=== PATIENT | male | born 1955 | race Caucasian/White ===

== ENCOUNTER 2023-10-18 15:03 | Outpatient (AMB) | payer BC, SELFPAY ==
--- NOTE | 2023-10-18 15:03 | MHC.OFFVIS ---
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 Patient would like to focus on his right knee today as this has been limiting most of his daily activities, functioning, climbing stairs, squatting and also affecting his sleep. He reports cortisone injection in right knee at [facility] a month ago with partial and temporary relief. He was offered a right knee TKA surgery however he would like to put that off for now as he wants to continue to work. He works at [employer] which involves long walking hours and at times heavy lifting. He reports at times his right knee will lock and cause him imbalance. Denies catching, tingling, numbness Presents with localized tenderness in the anterior and lateral aspects of right knee. Conservative treatments, including PT, Tylenol, topical creams have been minimally effective for his pain reduction or function improvement. Patient is interested to undergo interventional treatments for his right knee. He has upcoming diabetic evaluation by Endocrinology on 11/09/23. He is trying to eat better, decrease carbs intake and limit his light beer/soda consumption. Location Right shoulder and right knee Duration Chronic pain for > 2 years Characteristics of symptom or complaint Right knee- locking, burning, aching, throbbing. Right shoulder- aching Aggravating or associated factors Walking, climbing stairs, heavy lifting, squatting, cold weather Relieving factors Tylenol, OTC topical treatments, ice pack Treatment PT, right knee cortisone injections at [facility]-1 month ago [facility] Medical History Colonic polyp Diabetes mellitus Hypertension Prostatic hypertrophy PAF (paroxysmal atrial fibrillation) Hyperlipidemia Surgical History H/O lumbosacral spine surgery History of shoulder surgery History of left knee replacement Social History Alcohol intake: current Alcohol intake frequency: 3 or more drinks per day Alcohol type: beer Patient Tobacco Use Status: Current everyday Tobacco user Tobacco use type: Cigar Substance Use Type: Caffiene Substance Use Frequency: Daily Review of Systems Const All systems reviewed & are unremarkable except as noted in HPI and below Reports as per HPI, Denies body aches, Denies chills, Reports difficulty sleeping, Denies fatigue, Denies fever(s), Denies headache(s), Denies lethargy, Denies malaise, Denies night sweats, Denies weakness and Denies weight loss ENT Denies headache(s) and Denies neck pain Musc Reports as per HPI, Denies back pain, Reports arthralgias, Reports limited range of motion, Denies muscle weakness, Denies neck pain, Denies numbness, Denies radiating pain into limb, Reports stiffness and Denies tingling Neuro Reports burning sensations, Denies headache(s), Denies lack of coordination, Denies numbness, Denies radicular pain, Denies Sensory deficit (Neuro), Denies tingling, Denies paresthesias and Denies weakness Endo Denies fatigue Physical Exam Vital Signs: Last Vital Signs Pulse 98 10/18/23 15:13 BP 128/74 10/18/23 15:13 Pulse Ox 99 10/18/23 15:13 Oxygen Delivery Method Room Air 10/18/23 15:13 BMI result Body Mass Index 31.5 General: Appears afebrile. Alert and oriented. Mood and affect appropriate. Follows and participates in conversation appropriately. Respiratory effort is unlabored. No cough. Able to transition from sit to stand unassisted. Ambulates with bilaterally normal heel strike and toe off. Neuro Sensory Exam: No Sensory deficit (Neuro) Extrem General: Yes capillary refill normal, Yes no clubbing, cyanosis or edema and Yes no calf tenderness Right lower extremity: knee (limited ROM due to pain) Details: normal to inspection, tenderness and crepitus; no swelling, no ecchymosis, no deformity and no unusual warmth Assessment & Plan Assessment & Plan (1) Right knee pain: Code(s): M25.561 - Pain in right knee (2) Osteoarthritis of right knee: Code(s): M17.11 - Unilateral primary osteoarthritis, right knee Plan Schedule Right Diagnostic Saphenous nerve block at the adductor canal with local and US guidance for potential Sprint PNS trial. We also discussed genicular injections for RFA procedure as back up option. Informational pamphlets were provided ot patient. Expectations, risks and benefits were reviewed. Patient is aware he will be contacted to schedule this procedure. All questions were answered and the patient is in agreement of plan. Follow-up after injections and sooner as needed. Coding Level of Care Code New Pt Level 4 (82436) Diagnoses Right knee pain M25.561 Osteoarthritis of right knee M17.11
[2023-10-18 15:13] VITALS: BP 128/74; PULSE 98; O2SAT 99; BMI 31.5
== END 2023-10-18 15:46 | disposition home or self-care (01) ==
PROVIDERS: PCP Internal Medicine; Visit Provider Nurse Practitioner Family
DX: M25.561 Pain in right knee (principal); M17.11 Unilateral primary osteoarthritis, right knee
CPT/HCPCS: 99204

== ENCOUNTER → 2023-10-18 15:03 | Outpatient (BNVA) | payer BC, SELFPAY | PROVIDERS: PCP Internal Medicine; Visit Provider Nurse Practitioner Family ==

== ENCOUNTER 2023-10-26 10:27 | Outpatient (AMB) | payer BC, SELFPAY ==
--- NOTE | 2023-10-26 10:28 | MHC.OFFVIS ---
Intake Vital Signs 10/26/23 10:30 Height 6 ft Weight 232 lb BMI 31.5 Blood Pressure Location Lt brachial Position Sitting Respiration 12 Pulse 94 Pulse Source Pulse Oximeter Pulse Oximetry (%) 94 Oxygen Delivery Method Room Air Intake Visit Reasons: Right Dx SNB Allergies No Known Allergies Allergy (Verified 10/26/23 10:31) Medication List - Last Reconciled 10/26/23 by Yelena Hayes LPN empagliflozin (Jardiance) 25 mg PO DAILY fluticasone propion-salmeterol 115-21 mcg/actuation (Advair HFA) 2 puffs inhalation BID lisinopril-hydrochlorothiazide 20-25 mg 1 tab PO DAILY metformin 500 mg PO BID rosuvastatin 10 mg PO BEDTIME sildenafil mg PO HPI Right Dx SNB HPI Details 68-year-old male who presents today to the office for a right diagnostic SNB. Denies any recent cough, cold, infection, fever or other significant changes in medical history since last office visit. The patient previously had left shoulder repair and left knee TKA at [facility], back surgery in 1989 and 1993, significant right knee OA, diabetes (A1C 8.4). He states that his knee has been limiting most of his daily activities, functioning, climbing stairs, squatting and also affecting his sleep. He reports cortisone injection in right knee at [facility] a month ago with partial and temporary relief. He works at [employer]. He reports at times his right knee will lock and cause him imbalance. [facility] Medical History Colonic polyp Diabetes mellitus Hypertension Prostatic hypertrophy PAF (paroxysmal atrial fibrillation) Hyperlipidemia Surgical History H/O lumbosacral spine surgery History of shoulder surgery History of left knee replacement Social History Alcohol intake: current Alcohol intake frequency: 3 or more drinks per day Alcohol type: beer Patient Tobacco Use Status: Current everyday Tobacco user Tobacco use type: Cigar Substance Use Type: Caffiene Review of Systems Const All systems reviewed & are unremarkable except as noted in HPI and below Physical Exam Vital Signs: Last Vital Signs Pulse 94 10/26/23 10:30 Resp 12 10/26/23 10:30 Pulse Ox 94 10/26/23 10:30 Oxygen Delivery Method Room Air 10/26/23 10:30 BMI result Body Mass Index 31.5 General: Appears afebrile. Alert and oriented. Mood and affect appropriate. Follows and participates in conversation appropriately. Respiratory effort is unlabored. Able to transition from sit to stand unassisted. Ambulates with bilaterally normal heel strike and toe off. Office Procedures Nerve Block Details: Right diagnostic saphenous nerve block, ultrasound guided After obtaining written consent, pre-procedure blood pressure and heart rate were stable and recorded in the nursing record. The patient was placed supine on the table. The medial thigh area overlying the adductor canal was widely prepped with chloraprep, allowed to dry and sterilely draped. Using ultrasound, the appropriate landmarks including the femoral artery and saphenous nerve were identified. The skin overlying the target was anesthetized with 1% lidocaine. A 21 gauge 100 mm echostim needle was advanced under sonographic guidance to the adductor canal. Aspiration was negative for heme and synovial fluid. 10 cc of lidocaine 1% was injected around the saphenous nerve. The needles were removed, skin cleansed and a sterile bandage was applied. The patient tolerated the procedure well and no complications were encountered. Following the procedure the patient's vital signs and knee strength were stable. The patient was discharged home in good condition with post-procedural instructions. Time Out: Immediately prior to the procedure, the following was verbally confirmed that there is a signed consent form and that the correct patient, planned procedure, site and side are consistent with documentation and that necessary equipment and/or blood products are available prior to the start of the case. Complications: none EBL: <1 cc Note: An ultrasound image of the injection was taken and stored in the permanent record. 59330 - Saphenous (Right side, Ultrasound guided) Procedure code (CPT) selection complete Results Reviewed Results Reviewed: No imaging is available for review. Assessment & Plan Assessment & Plan (1) Osteoarthritis of right knee: Code(s): M17.11 - Unilateral primary osteoarthritis, right knee Plan Discussed temporary nerve stimulator vs. Synvisc injections as a possible treatment option. We did a diagnostic saphenous nerve block today in anticipation of potential saphenous nerve stimulation therapy but patient would like to hold off on nerve stimulation therapy at this time. He is more interested in trial of hyaluronic acid injections, so we will plan for a round of three intraarticular Synvisc injections in the office under ultrasound guidance one week apart. Discussed the risks and benefits of the procedure with the patient in detail. All questions were answered. The patient is on board with the plan. Justification for interventional therapy: ? Patient with average pain > 6/10 . He has previously exhausted physical therapy, bracing, intraarticular cortico-steroid injections. Scribed for Dr. Hussein by Serge Cristina, medical records custodian, on 10/26/2023. I, Dr. Hussein, have personally reviewed and agree with the information entered by the scribe. Coding Level of Care Code Est Pt Level 3 (33964) Diagnoses Osteoarthritis of right knee M17.11 CPT Codes Nerve Block - Nerve Block 10: 29804 - Saphenous ([id number])
[2023-10-26 10:30] VITALS: PULSE 94; RESP 12; O2SAT 94; BMI 31.5
== END 2023-10-26 10:57 | disposition home or self-care (01) ==
PROVIDERS: PCP Internal Medicine; Visit Provider Internal Medicine
DX: M17.11 Unilateral primary osteoarthritis, right knee (principal)
CPT/HCPCS: 64450; 76942

== ENCOUNTER → 2023-10-26 10:27 | Outpatient (BNVA) | payer BC, SELFPAY | PROVIDERS: PCP Internal Medicine; Visit Provider Internal Medicine | DX: M17.11 Unilateral primary osteoarthritis, right knee (principal) | CPT/HCPCS: 64450 ==

== ENCOUNTER 2023-11-06 14:20 | Outpatient (AMB) | payer BC, SELFPAY ==
--- NOTE | 2023-11-06 14:22 | A.OFFVIS_ITS ---
Intake Vital Signs 11/06/23 14:24 Height 6 ft Weight 232 lb BMI 31.5 BP 124/77 Blood Pressure Location Lt brachial Position Sitting Respiration 12 Pulse 104 H Pulse Source Pulse Oximeter Pulse Oximetry (%) 97 Oxygen Delivery Method Room Air Intake Visit Reasons: s/p Right Dx SNB/confirmed Allergies No Known Allergies Allergy (Verified 11/06/23 14:25) Medication List - Last Reconciled 11/06/23 by Yelena Hayes LPN empagliflozin (Jardiance) 25 mg PO DAILY fluticasone propion-salmeterol 115-21 mcg/actuation (Advair HFA) 2 puffs inhalation BID lisinopril-hydrochlorothiazide 20-25 mg 1 tab PO DAILY metformin 500 mg PO BID rosuvastatin 10 mg PO BEDTIME sildenafil mg PO HPI HPI Comments History of Present Illness Details Patient presents today to assess response to Right Diagnostic SNB on 10/26/[address] Hussein. Patient reports 100% pain relief for 4 days and ongoing 75% pain relief since procedures with significant improvement in his mobility, especially with climbing or descending stairs, range of motion, better functioning and improved sleep. Patient reports he would like to hold off on nerve stimulation therapy at this time and trial hyaluronic acid injections first. There is pending prior authorization for there intra-articular Synvisc injections with ultrasound guidance. Current right knee pain is rated at 2-3/10. 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 He rates his back pain at 7- 8/10. He has tried heat therapy, rolling ice packs and adjusting his positions with minimal effect. Patient denies trying Tylenol or NSAIDs for back pain. Denies any pain radiation into his legs, denies numbness, tingling, weakness, foot drop, bladder or bowel dysfunction or saddle anesthesia. Past Procedures: 10/26/23: Right Diagnostic SNB-100% pain relief x 4 days PRIOR: Patient is a pleasant 68 years old male with previous left shoulder repair and left knee TKA at [facility], back surgery in 1989 and 1993, significant right knee OA, diabetes (A1C 8.4) presents today for right shoulder and right knee pain. Patient would like to focus on his right knee today as this has been limiting most of his daily activities, functioning, climbing stairs, squatting and also affecting his sleep. He reports cortisone injection in right knee at [facility] a month ago with partial and temporary relief. He was offered a right knee TKA surgery however he would like to put that off for now as he wants to continue to work. He works at [employer] which involves long walking hours and at times heavy lifting. He reports at times his right knee will lock and cause him imbalance. Denies catching, tingling, numbness Presents with localized tenderness in the anterior and lateral aspects of right knee. Conservative treatments, including PT, Tylenol, topical creams have been minimally effective for his pain reduction or function improvement. Patient is interested to undergo interventional treatments for his right knee. He has upcoming diabetic evaluation by Endocrinology on 11/09/23. He is trying to eat better, decrease carbs intake and limit his light beer/soda consumption. Location Right shoulder and right knee Duration Chronic pain for > 2 years Characteristics of symptom or complaint Right knee- locking, burning, aching, throbbing. Right shoulder- aching Aggravating or associated factors Walking, climbing stairs, heavy lifting, squatting, cold weather Relieving factors Tylenol, OTC topical treatments, ice pack Treatment PT, right knee cortisone injections at [facility]-1 month ago [facility] Medical History Colonic polyp Diabetes mellitus Hypertension Prostatic hypertrophy PAF (paroxysmal atrial fibrillation) Hyperlipidemia Surgical History H/O lumbosacral spine surgery History of shoulder surgery History of left knee replacement Social History Alcohol intake: current Alcohol intake frequency: 3 or more drinks per day Alcohol type: beer Patient Tobacco Use Status: Current everyday Tobacco user Tobacco use type: Cigar Substance Use Type: Caffiene Review of Systems Const All systems reviewed & are unremarkable except as noted in HPI and below Physical Exam Vital Signs: Last Vital Signs Pulse 104 H 11/06/23 14:24 Resp 12 11/06/23 14:24 BP 124/77 11/06/23 14:24 Pulse Ox 97 11/06/23 14:24 Oxygen Delivery Method Room Air 11/06/23 14:24 BMI result Body Mass Index 31.5 General: Appears afebrile. Alert and oriented. Mood and affect appropriate. Follows and participates in conversation appropriately. Respiratory effort is unlabored. No cough. Able to transition from sit to stand unassisted. Ambulates with bilaterally normal heel strike and toe off. Back/Spine/Pelvis Cervical Spine: cervical ROM normal and No Cervical spine tenderness Thoracic/Lumbar Spine: thoracic and lumbar spine normal to inspection, Thor acic/lumbar spine scar(s), Lasegue's sign negative, straight leg raise negative bilaterally, pain with thoraco-lumbar ROM, thoraco-lumbar ROM limited, No thoracic spinal tenderness and lumbar spinal tenderness (L4-S1) Pelvis: no buttock tenderness Extrem General: Yes capillary refill normal, Yes no clubbing, cyanosis or edema and Yes no calf tenderness Right lower extremity: knee Details: normal to inspection, tenderness Location: of the medial joint line and of the lateral joint line and crepitus; no swelling, no ecchymosis, no deformity and no unusual warmth Assessment & Plan Assessment & Plan (1) Osteoarthritis of right knee: Code(s): M17.11 - Unilateral primary osteoarthritis, right knee (2) Right knee pain: Code(s): M25.561 - Pain in right knee (3) Low back pain: Code(s): M54.50 - Low back pain, unspecified Plan Patient is status post right diagnostic SNB with excellent results. Reviewed temporary peripheral nerve stimulator vs. Synvisc injections as a possible next treatment options. Patient would like to hold off on nerve stimulation therapy at this time and proceed with hyaluronic acid injections. There is pending prior authorization three intra-articular Synvisc injections in the office under ultrasound guidance one week apart. Reviewed the risks and benefits of the procedure with the patient. Patient declined diagnostic tests or treatments for recent back injury due to heavy lifting. He denies any radicular symptoms and is able to manage his symptoms with conservative measures. Patient is aware to call if pain worsens or if he develops any red flag symptoms to seek emergency care. All questions were answered and patient agreed with the plan. Follow up after knee injections and sooner if needed. Justification for interventional therapy: ? Patient with average pain > 6/10 . He has previously exhausted physical therapy, bracing, intraarticular cortico- steroid injections. Coding Level of Care Code Est Pt Level 4 (12197) Diagnoses Osteoarthritis of right knee M17.11 Right knee pain M25.561 Low back pain M54.50
[2023-11-06 14:24] VITALS: BP 124/77; PULSE 104; RESP 12; O2SAT 97; BMI 31.5
== END 2023-11-06 14:41 | disposition home or self-care (01) ==
PROVIDERS: PCP Internal Medicine; Visit Provider Nurse Practitioner Family
DX: M17.11 Unilateral primary osteoarthritis, right knee (principal); M25.561 Pain in right knee; M54.50 Low back pain, unspecified
CPT/HCPCS: 99214

== ENCOUNTER → 2023-11-06 14:20 | Outpatient (BNVA) | payer BC, SELFPAY | PROVIDERS: PCP Internal Medicine; Visit Provider Nurse Practitioner Family ==